=== PATIENT | female | born 1990 | race Caucasian/White ===

== ENCOUNTER 2018-05-26 10:20 | Emergency (ER) | payer MEDICAID ==
[~2018-05-26] VITALS: Ht 152.4 cm; Wt 82.6 kg
[2018-05-26 10:28] VITALS: BP 123/70
[2018-05-26] MEDS ORDERED: ALBUTEROL FS 2.5 MG/3 ML VIAL.NEB ONE (11:04)
[2018-05-26] MEDS: ALBUTEROL FS 2.5 MG/3 ML VIAL.NEB NEB ONE (11:08)
== END 2018-05-26 12:42 | disposition home or self-care (01) ==
LOC: ER 10:20
DX: J40 Bronchitis, not specified as acute or chronic (principal); F17.200 Nicotine dependence, unspecified, uncomplicated
CPT/HCPCS: 71045-TC

== ENCOUNTER 2019-04-04 13:01 | Emergency (ER) | payer SELFPAY ==
[~2019-04-04] VITALS: Ht 152.4 cm; Wt 85.7 kg
--- NOTE | 2019-04-04 13:11 | NUR ---
BIBS FOR L LOWER BACK PAIN RADIATING TO L GROIN x COUPLE DAYS, WORSE TODAY ALSO C/O PAIN AFTER URINATING, TO ER BED 11, HOOKED TO MONITOR, CHANGEDTO HOSP GOWN, WARM BLANKET PROVIDED. AWAITING MD GARSIA. PATIENT AOx 4, BREATHING EVEN AND UNLABORED.
--- NOTE | 2019-04-04 13:24 | NUR ---
ARON LOPEZ AT BEDSIDE
[2019-04-04] MEDS ORDERED: IV NS 0.9% 500 ML BAG IV ONE (13:30)
[2019-04-04] MEDS ORDERED: KETOROLAC TROMETHAMINE INJ 30 MG/ML VIAL IV ONE (13:30)
[2019-04-04 13:42] LABS: BASOPHILS % (AUTO) 0.2 % (0.0-2.0); EOSINOPHILS % (AUTO) 0.8 % (0.0-6.0); HEMATOCRIT 35 % (33-45); HEMOGLOBIN 11.9 g/dL (11.5-14.8); LYMPHOCYTES # (AUTO) 1.8 /CMM (0.8-4.8); LYMPHOCYTES % (AUTO) 17.6 % (20.0-44.0); MEAN CORPUSCULAR HGB CONC 34 g/dl (31.0-36.0); MEAN CORPUSCULAR VOLUME 87 fL (82-100); MONOCYTES # (AUTO) 0.9 /CMM (0.1-1.30); MONOCYTES % (AUTO) 8.6 % (2.0-12.0); NEUTROPHILS # (AUTO) 7.6 /CMM (1.8-8.9); NEUTROPHILS % (AUTO) 72.8 % (43.0-81.0); PLATELET COUNT (AUTO) 310 /CMM (150-450); RED BLOOD CELL COUNT(AUTO) 4.04 MIL/uL (4.0-5.2); WHITE BLOOD COUNT (AUTO) 10.5 K/uL (4.3-11.0)
[2019-04-04 13:45] LABS: APPEARANCE,URINE Clear (CLEAR); BILIRUBIN,URINE Negative (NEGATIVE); BLOOD, URINE Large Ery/uL (NEGATIVE); COLOR,URINE Yellow (YELLOW); KETONES,URINE Negative (NEGATIVE); LEUKOCYTE ESTERASE ,URINE Large (NEGATIVE); NITRITE, URINE Positive (NEGATIVE); PROTEIN,URINE >=300 mg/dl (NEGATIVE); UGLUCOSE Negative (NEGATIVE); UROBILINOGEN,URINE 0.2 EU/dL (0.2)
[2019-04-04 13:49] LABS: CALCIUM, SERUM 9.4 mg/dL (8.5-10.1); CREATININE 0.6 mg/dL (0.6-1.3); POTASSIUM 3.8 mmol/L (3.5-5.1)
[2019-04-04 13:54] LABS: ALBUMIN 3.8 g/dL (3.4-5.0); BACTERIA,URINE 3+ /HPF (None Seen); BILIRUBIN,DIRECT 0.1 mg/dL (0.0-0.2); BILIRUBIN,TOTAL 0.6 mg/dL (0.2-1.0); SQUAMOUS EPITHELIAL CELL,UR Few /HPF (None Seen); TOTAL PROTEIN, SERUM 7.2 g/dL (6.4-8.2); WBC,URINE 51-80 /HPF (0-3)
[2019-04-04] MEDS ORDERED: KETOROLAC TROMETHAMINE INJ 30 MG/ML VIAL ONE (14:13)
[2019-04-04] MEDS ORDERED: CEFTRIAXONE 1GM BAG (ER ONLY) 50 ML IV ONE (15:00)
[2019-04-04] MEDS ORDERED: CEFTRIAXONE 1 G in IV D5W 50 ML IV ONE (15:00)
--- NOTE | 2019-04-04 16:00 | NUR ---
IV removed. Catheter intact and site benign. Pressure and 4x4 applied to site. No bleeding noted.Patient discharged to home in stable condition. Written and verbal after care instructions given. Patient verbalizes understanding of instruction.
[2019-04-04 16:03] VITALS: BP 121/67
== END 2019-04-04 16:03 | disposition home or self-care (01) ==
LOC: ER 13:09
DX: N39.0 Urinary tract infection, site not specified (principal); R11.10 Vomiting, unspecified; F10.10 Alcohol abuse, uncomplicated; Y90.9 Presence of alcohol in blood, level not specified
CPT/HCPCS: 36415; 74176; 80048; 80076; 81001; 83690; 84703; 85025; 87077; 87086; 87186; 96361; 96365; 96375; 99284; J0696; J1885; J7040; J7060; 81000-TC

== ENCOUNTER 2020-05-24 15:51 | Emergency (ER) | payer OTHER ==
[~2020-05-24] VITALS: Ht 152.4 cm; Wt 83.9 kg
--- NOTE | 2020-05-24 16:10 | NUR ---
THE PATIENT BIBS FOR C/O R FLANK PAIN X 2 WEEKS. THE PATIENT RATES PAIN 8/10. THE PATIENT DENIES SOB. RESPIRATION REGULAR AND UNLABORED. THE PATIENT IS PROVIDED WITH WARM BLANKET FOR COMFORT. WILL CONTINUE TO MONITOR.
[2020-05-24] MEDS ORDERED: KETOROLAC TROMETHAMINE 15 MG/ML VIAL ONE (16:45)
[2020-05-24 16:48] LABS: BILIRUBIN,URINE Negative (NEGATIVE); COLOR,URINE YELLOW (YELLOW); LEUKOCYTE ESTERASE ,URINE Negative (NEGATIVE); NITRITE, URINE Negative (NEGATIVE); PROTEIN,URINE Negative (NEGATIVE); UGLUCOSE Negative (NEGATIVE); UROBILINOGEN,URINE 0.2 EU/dL (0.2)
[2020-05-24] MEDS ORDERED: KETOROLAC TROMETHAMINE INJ 30 MG/ML VIAL IM ONE (17:00)
[2020-05-24 17:02] LABS: BACTERIA,URINE Few /HPF (None Seen); WBC,URINE 0-2 /HPF (0-3)
--- NOTE | 2020-05-24 17:43 | NUR ---
PATIENT TAKEN FOR IMAGING.
--- NOTE | 2020-05-24 17:50 | NUR ---
PATIENT BACK FROM RADIOLOGY DEPT.
[2020-05-24] MEDS ORDERED: HYDR-4209 PO (18:26)
[2020-05-24] MEDS ORDERED: TAMS-12 PO (18:26)
--- NOTE | 2020-05-24 18:38 | NUR ---
Patient alert and oriented x4. Denies pain at this time. Respiration regular and unlabored. Denies SOB. Patient discharged to home in stable condition. Prescriptions given, written and verbal after care instructions given. Patient verbalizes understanding of instruction. The patient left ER in stable condition.
[2020-05-24 18:45] VITALS: BP 122/63
== END 2020-05-24 18:40 | disposition home or self-care (01) ==
LOC: ER 15:59
DX: N20.1 Calculus of ureter (principal); R31.29 Other microscopic hematuria; F10.10 Alcohol abuse, uncomplicated; Y90.9 Presence of alcohol in blood, level not specified; Z79.899 Other long term (current) drug therapy
CPT/HCPCS: 74176; 81001; 84703; 96372; 99284; J1885

== ENCOUNTER 2020-08-16 22:55 | Emergency (ER) | payer OTHER ==
[~2020-08-16] VITALS: Ht 152.4 cm; Wt 83.9 kg
[~2020-08-16 22:55] MED LIST: HYDR-4209 PO; TAMS-12 PO
[2020-08-16 23:05] VITALS: BP 112/70
--- NOTE | 2020-08-16 23:14 | NUR ---
patient came to er bed 3 c/o left anterior foot pain since today. Patient states that she was moving her bed when she accidentally dropped the bed spring box on her foot which weighed approximately 40lbs+ redness on the site of injury. Patient states that she has history of Multiple sclerosis. Patient is alert and oriented X4. breathing evenly and unlabored on room air.
--- NOTE | 2020-08-16 23:27 | NUR ---
xray at bedside
--- NOTE | 2020-08-17 00:29 | NUR ---
PAtient is ambulatory with a steady gait
--- NOTE | 2020-08-17 00:29 | NUR ---
Patient discharged to home in stable condition. Written and verbal after care instructions given. Patient verbalizes understanding of instruction.
== END 2020-08-17 00:30 | disposition home or self-care (01) ==
LOC: ER 22:55
DX: S93.692A Other sprain of left foot, initial encounter (principal); F17.200 Nicotine dependence, unspecified, uncomplicated; Z98.890 Other specified postprocedural states; Z79.899 Other long term (current) drug therapy; W18.39XA Other fall on same level, initial encounter; Y93.89 Activity, other specified; Y92.89 Other specified places as the place of occurrence of the external cause; Y99.8 Other external cause status
CPT/HCPCS: 73630-TC

== ENCOUNTER 2020-11-24 04:40 | Emergency (ER) | payer MEDICAID, OTHER ==
[~2020-11-24] VITALS: Ht 152.4 cm; Wt 79.4 kg
--- NOTE | 2020-11-24 04:50 | NUR ---
BIB FAMILY C/O SUBSTERNAL CHEST BURNING AND PRESSURE SINCE 10/10 WELL NASUEA AND R ARM NUMBNESS.DENIES ABD PAIN OR CHANGES IN GI/ PATTERNS. 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 MD WAS AT BEDSIDE FOR EVALUATION.
[2020-11-24] MEDS ORDERED: LIDOCAINE VISCOUS 2% UD 15 ML UDC ONE (04:54)
[2020-11-24] MEDS ORDERED: MAG HYDROX/AL HYDROX/SIMETH 30 ML UDC ONE (04:54)
[2020-11-24] MEDS ORDERED: MAG HYDROX/AL HYDROX/SIMETH 30 ML UDC PO ONE (05:00)
[2020-11-24] MEDS ORDERED: LIDOCAINE VISCOUS 2% UD 15 ML UDC MM ONE (05:00)
--- NOTE | 2020-11-24 05:01 | NUR ---
XRAY AT BEDSIDE
--- NOTE | 2020-11-24 05:32 | NUR ---
WAIVER SIGNED FOR TORADOL ADMINISTRATION
[2020-11-24] MEDS ORDERED: KETOROLAC TROMETHAMINE INJ 60 MG/2 ML VIAL IM ONE ×2 (05:40→06:00)
--- NOTE | 2020-11-24 06:01 | NUR ---
PT DISCHGARGED HOME INSTABLE CONDITION AND STATES RELIEF FROM PAIN. WRITTEN AND VERBAL DISCHARGE INSTRUCTIONS PROVIDED AND SHE REPORTS UNDERSTANDING IN ADDITION TO CXRAY AND EKG. VITAL SIGNS STABLE AT DISCHARGE AMBULATED WITHOUT DIFFICULTY.
[2020-11-24 06:07] VITALS: BP 135/75
== END 2020-11-24 06:08 | disposition home or self-care (01) ==
LOC: ER 04:44
DX: R07.89 Other chest pain (principal); Z98.890 Other specified postprocedural states; Z79.899 Other long term (current) drug therapy
CPT/HCPCS: 71045; 93005; 96372; 99285; J1885

== ENCOUNTER 2021-11-16 21:54 | Emergency (ER) | payer OTHER ==
[~2021-11-16] VITALS: Ht 152.4 cm; Wt 70.3 kg
--- NOTE | 2021-11-16 23:05 | NUR ---
BIBHUSBAND. CHEST PRESSURE "FEELS SOMEBODY SITTING". MID STERNAL NON RADIATING 12/10. PATIENT ALERT AND ORIENTED X3. AMBULATORY WITH NON LABORED BREATHING IN BED 09 ON MONITOR AND POX, WITH BF AT BEDSIDE
[2021-11-16] MEDS ORDERED: ONDANSETRON HCL/PF 4 MG/2 ML VIAL ONE (23:23)
[2021-11-16] MEDS ORDERED: MORPHINE SULFATE INJ 4 MG/ML DISP.SYRIN ONE (23:23)
[2021-11-16] MEDS ORDERED: ONDANSETRON HCL/PF 4 MG/2 ML VIAL IVP ONE (23:30)
[2021-11-16] MEDS ORDERED: IV NS 0.9% 1,000 ML BAG IV ONE (23:30)
[2021-11-16] MEDS ORDERED: MORPHINE SULFATE INJ 2 MG/ML DISP.SYRIN IV ONE (23:30)
--- NOTE | 2021-11-16 23:33 | NUR ---
BLOOD COLLECTED AND SENT TO LAB
--- NOTE | 2021-11-16 23:33 | NUR ---
EMT AT BEDSIDE FOR EKG
--- NOTE | 2021-11-16 23:41 | NUR ---
URINE COLLECTED AND SENT TO LAB
[2021-11-17] LABS: BASOPHILS % (AUTO) 0.2 % (0.0-2.0); EOSINOPHILS % (AUTO) 2.2 % (0.0-6.0); HEMATOCRIT 36 % (33-45); HEMOGLOBIN 11.6 g/dL (11.5-14.8); LYMPHOCYTES # (AUTO) 2.2 K/uL (0.8-4.8); LYMPHOCYTES % (AUTO) 28.4 % (20.0-44.0); MEAN CORPUSCULAR HGB CONC 33 g/dl (31.0-36.0); MEAN CORPUSCULAR VOLUME 84 fL (82-100); MONOCYTES # (AUTO) 0.8 K/uL (0.1-1.30); MONOCYTES % (AUTO) 9.8 % (2.0-12.0); NEUTROPHILS # (AUTO) 4.7 K/uL (1.8-8.9); NEUTROPHILS % (AUTO) 59.4 % (43.0-81.0); PLATELET COUNT (AUTO) 380 K/uL (150-450); RED BLOOD CELL COUNT(AUTO) 4.24 MIL/uL (4.0-5.2); WHITE BLOOD COUNT (AUTO) 7.9 K/uL (4.3-11.0)
[2021-11-17 00:01] LABS: BILIRUBIN,URINE NEGATIVE (NEGATIVE); COLOR,URINE YELLOW (YELLOW); LEUKOCYTE ESTERASE ,URINE NEGATIVE (NEGATIVE); NITRITE, URINE NEGATIVE (NEGATIVE); PROTEIN,URINE NEGATIVE (NEGATIVE); UGLUCOSE NEGATIVE (NEGATIVE); UROBILINOGEN,URINE 0.2 EU/dL (0.2)
--- NOTE | 2021-11-17 00:20 | NUR ---
ROOM 314-2
[2021-11-17 00:26] LABS: ALANINE AMINOTRANSFERASE 25 U/L (12-78); ALBUMIN 3.7 g/dL (3.4-5.0); ALKALINE PHOSPHATASE 54 U/L (46-116); ASPARTATE AMINOTRANSFERASE 12 U/L (15-37); BILIRUBIN,DIRECT 0.1 mg/dL (0.0-0.2); BILIRUBIN,TOTAL 0.6 mg/dL (0.2-1.0); CALCIUM, SERUM 9.3 mg/dL (8.5-10.1); CARBON DIOXIDE 32 mmol/L (21-32); CHLORIDE 105 mmol/L (98-107); CREATININE 0.7 mg/dL (0.6-1.3); GLUCOSE 91 mg/dL (74-106); LIPASE 128 U/L (73-393); POTASSIUM 3.8 mmol/L (3.5-5.1); SODIUM SERUM 140 mmol/L (136-145); TOTAL PROTEIN, SERUM 7.3 g/dL (6.4-8.2); UREA NITROGEN, BLOOD 15 mg/dL (7-18)
[2021-11-17] MEDS ORDERED: CIPR500T5 PO (05:04)
[2021-11-17] MEDS ORDERED: METR500T PO (05:04)
[2021-11-17] MEDS ORDERED: ONDA4TAB5 PO (05:04)
[2021-11-17] MEDS ORDERED: CIPROFLOXACIN HCL 500 MG TABLET ONE (05:05)
[2021-11-17] MEDS ORDERED: METRONIDAZOLE 500 MG TABLET ONE (05:05)
--- NOTE | 2021-11-17 05:08 | NUR ---
Patient discharged to home in stable condition. Written and verbal after care instructions given. Patient verbalizes understanding of instruction.
[2021-11-17 05:09] VITALS: BP 131/80
[2021-11-17] MEDS ORDERED: CIPROFLOXACIN HCL 500 MG TABLET PO ONE (05:30)
[2021-11-17] MEDS ORDERED: METRONIDAZOLE 500 MG TABLET PO ONE (05:30)
== END 2021-11-17 05:36 | disposition home or self-care (01) ==
LOC: ER 22:00
DX: K52.9 Noninfective gastroenteritis and colitis, unspecified (principal); R07.9 Chest pain, unspecified; F17.200 Nicotine dependence, unspecified, uncomplicated; Z79.899 Other long term (current) drug therapy
CPT/HCPCS: 99285; 74176; 96374; 71045; 96361; 96375; 93005; 85025; 80048; 83690; 80076; 84703; 81003; 36415; 84484 ×2; 85730; J2270; J2405; J7030

== ENCOUNTER 2021-12-17 23:20 | Emergency (ER) | payer OTHER ==
[~2021-12-17] VITALS: Ht 152.4 cm; Wt 68.0 kg
[~2021-12-17 23:20] MED LIST changes: +CIPR500T5 PO; +METR500T PO; +ONDA4TAB5 PO
[2021-12-17] MEDS ORDERED: DEXAMETHASONE SOLN 5 MG/5 ML UDC ONE (23:52)
--- NOTE | 2021-12-17 23:53 | NUR ---
BIBFAMILY C/O RIGHT EAR PAIN AND SORE THROAT. PT AWAKE AND ALERT X4 BREATHING UNLABORED -SOB. V/S WNL.
--- NOTE | 2021-12-17 23:54 | NUR ---
STERP SWAB COLLECTED
[2021-12-18] MEDS ORDERED: DEXAMETHASONE SOD PHOSPHATE 4 MG/ML VIAL IV ONE
--- NOTE | 2021-12-18 02:15 | NUR ---
Patient discharged to home in stable condition. Written and verbal after care instructions given. Patient verbalizes understanding of instruction.
[2021-12-18 02:30] VITALS: BP 133/56
== END 2021-12-18 02:17 | disposition home or self-care (01) ==
LOC: ER 23:34
DX: J02.8 Acute pharyngitis due to other specified organisms (principal); Z79.899 Other long term (current) drug therapy
CPT/HCPCS: 99283; 96374; 87880; J8540; 86403-TC